=== PATIENT | male | born 1990 | race Caucasian/White ===

== ENCOUNTER 2018-01-16 10:19 | Day surgery (SDC) | payer OTHER ==
[~2018-01-16 10:19] MED LIST: LACTATED RINGERS 1000 ML IV PRN; LIDOCAINE 0.5% INJ-PF (5 MG/ML) 50 ML SDV SUBCUT PRN
[2018-01-16] MEDS ORDERED: ACETAMINOPHEN 1,000 MG/100 ML RTUPB IV ONE (12:48)
[2018-01-16] MEDS ORDERED: DEXMEDETOMIDINE INJ 80 MCG/20 ML VIAL IV ONE (12:48)
[2018-01-16] MEDS ORDERED: MIDAZOLAM 2 MG/2 ML INJ ONE (12:48)
[2018-01-16] MEDS ORDERED: FENTANYL CITRATE INJ/PF 100 MCG/2 ML AMPUL ONE (12:48)
[2018-01-16] MEDS ORDERED: PROPOFOL INJ 200 MG/20 ML VIAL IV ONE (12:48)
[2018-01-16] MEDS ORDERED: CEFAZOLIN 1 GM/D5W RTU 1 GM/50 ML RTUPB IV ONE (12:50)
[2018-01-16] MEDS ORDERED: DIPHENHYDRAMINE HCL 50 MG/ML VIAL IV PRN (13:10)
[2018-01-16] MEDS ORDERED: MEPERIDINE HCL/PF INJ 25 MG/1 ML DISP.SYRIN IV PRN (13:10)
[2018-01-16] MEDS ORDERED: FENTANYL CITRATE INJ/PF 100 MCG/2 ML AMPUL IV PRN ×3 (13:10)
[2018-01-16] MEDS ORDERED: PROMETHAZINE HCL INJ 25 MG/1 ML VIAL IV PRN ×2 (13:10)
--- NOTE | 2018-01-16 13:20 | RADIOLOGY REPORT (SQ) ---
EXAM DESCRIPTION: U/S SCROTUM W/O DOPPLER COMPLETED DATE/TIME: 01/16/2018 11:42 am REASON FOR STUDY: PREOP N43.3 HYDROCELE, UNSPECIFIED COMPARISON: None. TECHNIQUE: Static and realtime rasheed scale imaging of the scrotum and testes. Selected color Doppler and spectral images recorded to document blood flow. LIMITATIONS: None. FINDINGS: RIGHT: TESTICLE: Normal size, 3.4 x 2.3 x 2.2 cm in size. Normal echotexture. Normal blood flow. No mass. EPIDIDYMIS: Normal. HYDROCELE OR VARICOCELE: Massive right hydrocele without septations or debris, 11 x 7 x 6 cm in size HERNIA OR EXTRA-TESTICULAR MASS: No. OTHER: No other significant finding. LEFT: TESTICLE: Normal size, 3.9 x 2.8 x 2 cm in size. Normal echotexture. Normal blood flow. No mass. EPIDIDYMIS: Normal. HYDROCELE OR VARICOCELE: No. HERNIA OR EXTRA-TESTICULAR MASS: No. OTHER: No other significant finding. IMPRESSION: NO EVIDENCE OF TESTICULAR MASS OR TORSION. NORMAL SIZE TESTICLES WITH NORMAL COLOR FLOW BILATERALLY. LARGE RIGHT SIMPLE HYDROCELE TECHNICAL DOCUMENTATION: JOB ID: [id number] [employer] (acquired by [employer])- All Rights Reserved Reading location - IP/workstation name: [email or web address]
[2018-01-16] MEDS ORDERED: BUPIVACAINE HCL 0.25 % INJ/PF (2.5 MG/1 ML) 30 ML VIAL ONE (13:22)
[2018-01-16] MEDS ORDERED: MEPERIDINE HCL/PF INJ 25 MG/1 ML DISP.SYRIN ONE (14:51)
[2018-01-16] MEDS ORDERED: PROMETHAZINE HCL INJ 25 MG/1 ML VIAL ONE (15:02)
[2018-01-16] MEDS ORDERED: NEOMY/BACITRAC ZN/POLY OINT 15 GM TP PRN (15:12)
[2018-01-16] MEDS ORDERED: DEXAMETHASONE SOD PHOSPHATE INJ 4 MG/1 ML VIAL ONE (15:14)
[2018-01-16] MEDS ORDERED: KETOROLAC TROMETHAMINE 60 MG/2 ML SDV ONE (15:14)
[2018-01-16] MEDS ORDERED: ONDANSETRON HCL INJ/PF 4 MG/2 ML SDV ONE ×2 (15:14→15:50)
[2018-01-16] MEDS ORDERED: NORMAL SALINE 1000 ML 1,000 ML IV PRN (15:39)
[2018-01-16] MEDS ORDERED: HYDROCODONE/ACETAMINOPHEN 7.5-325 MG TABLET PO PRN (15:40)
[2018-01-16] MEDS ORDERED: ONDANSETRON HCL INJ/PF 4 MG/2 ML SDV IV PRN (15:44)
[2018-01-16] MEDS ORDERED: HYDROCODONE/ACETAMINOPHEN 7.5-325 MG TABLET ONE (15:50)
--- NOTE | 2018-01-16 15:50 | Operative Report ---
Operative Report DATE OF SURGERY: 01/16/18 PREOPERATIVE DIAGNOSIS: Right hydrocele, anterior abdominal wall skin lesions POSTOPERATIVE DIAGNOSIS: Same OPERATION: Excision of anterior abdominal wall lesion, right hydrocelectomy SURGEON: LA NENA ATKINSON II ANESTHESIA: GA TISSUE REMOVED OR ALTERED: Anterior abdominal wall skin lesions ESTIMATED BLOOD LOSS: 10 cc INTRAOPERATIVE FINDINGS: Right hydrocele with normal-appearing right testis, anterior abdominal wall skin lesions PROCEDURE: Preoperative diagnosis: Right hydrocele, anterior abdominal wall skin lesions Postoperative diagnosis: Same Procedure: Right hydrocelectomy, excision of anterior abdominal wall skin lesions Anesthesia: General, local Surgeon: Yousuf The patient was taken to the operating room and placed into the supine position on the operating room table. After adequate general anesthesia, he was prepped and draped in the usual sterile fashion. The skin under the anterior abdominal wall lesions was infiltrated with 0.25% Marcaine and the lesions were excised and sent to pathology. The larger incision was closed with interrupted 4-0 Monocryl. The smaller incision was left open. The midline of the scrotum was infiltrated with 0.25% Marcaine. A midline incision was performed on the scrotum taking the incision down to the right hydrocele sac. The hydrocele was entered sharply and the fluid drained. Approximately 170 cc was drained from the hydrocele. The testicle was then delivered into the incision and checked for bleeding. The cut edges of the hydrocele sac were then reapproximated around the testicle so that the hydrocele could not form again. This was accomplished with 3-0 chromic suture. The testicle was then replaced into the right hemiscrotum taking care to orient the testicle in the proper fashion with the epididymis in the posterior lateral position. A separate stab incision was made in the inferior portion of the right hemiscrotum. A 1/4 inch [place] drain was placed through this incision to drain the right hemiscrotum. The drain was attached to the skin with a 2-0 silk suture. Any bleeding was controlled using the cautery. Attention was then turned to closure. The skin of the scrotum was closed in a subcuticular fashion with 4 oh Monocryl. Dermabond was then used to seal the incision in the scrotum and the larger inferior abdominal wall lesion incision. The upper abdominal wall incision was only partial-thickness and was treated with Neosporin. Patient was returned to PACU after a scrotal support and dressings were placed. He tolerated the procedure well.
[2018-01-16] MEDS ORDERED: NEOMY/BACITRAC ZN/POLY OINT 15 GM ONE (16:05)
[2018-01-16 17:36] VITALS: BP 128/77
== END 2018-01-16 17:10 | disposition home or self-care (01) ==
LOC: OROUT 10:19
PROVIDERS: ATTEND Urology
DX: N43.3 Hydrocele, unspecified (principal); D23.5 Other benign neoplasm of skin of trunk
CPT/HCPCS: 88305 ×2; 76870; 55040; 11400; J2250; J0690; J1100; J1885; J3010; J2175; J3490; J2550; J2405; J2704; J0131; 700